=== PATIENT | female | born 1995 | race Caucasian/White ===

== ENCOUNTER 2017-02-12 01:15 | Emergency (ER) | payer BC ==
[~2017-02-12] VITALS: Ht 160 cm; Wt 49.8 kg
[~2017-02-12 01:15] MED LIST: ADDERALL XR 2020 MG PO; GILENYA0.5 MG PO; MODAFINIL200 MG PO; NORTRIPTYLINE H25 MG PO; RIZATRIPTAN10 MG PO; TOPIRAMATE25 MG PO; YASMIN,OCELL1 TABLET PO; ZOLMITRIPTAN5 MG PO; birth control
[2017-02-12 01:36] LABS: HEMATOCRIT 36.5 % (36.0-46.0); MCH 30.5 PG (29.0-34.0); MCHC 34.8 G/DL (30.0-36.0); MCV 87.7 FL (83-99); MEAN PLAT.VOLUME 9.4 uM^3 (9.5-12.4); PLATELET COUNT 343 K/uL (156-360); RBC DIS.WIDTH-CV 12.6 % (11.8-14.6); RBC DIS.WIDTH-SD 39.6 % (39-53); RED BLOOD COUNT 4.16 M/uL (3.80-5.20); WHITE BLOOD COUNT 3.8 K/uL (4.1-10.2)
[2017-02-12 01:47] LABS: CHLORIDE 104 mEq/L (99-109); POTASSIUM 3.8 mEq/L (3.7-5.4); SODIUM 140 mEq/L (136-147)
[2017-02-12 01:49] LABS: GLUCOSE 94 mg/dL (70-99)
[2017-02-12 01:50] LABS: ANION GAP 11 MEQ/L (2-14)
[2017-02-12 01:51] LABS: TOTAL BILIRUBIN 0.6 mg/dL (0.0-1.0)
[2017-02-12 01:52] LABS: ALKALINE PHOSPHATASE 48 IU/L (3-129)
[2017-02-12 01:53] LABS: GFR ESTIMATE (CALCULATED) > 59 mL/min/
[2017-02-12 01:54] LABS: UREA NITROGEN (BUN) 8 mg/dL (9-23)
[2017-02-12 02:05] LABS: QUANTITATIVE HCG < 4.0 MIU/ML
[2017-02-12] MEDS ORDERED: ZOFRAN8 MG PO (04:24)
[2017-02-12] MEDS ORDERED: PEPCID20 MG PO (04:24)
[2017-02-12 05:56] VITALS: BP 112/73
== END 2017-02-12 05:57 | disposition home or self-care (01) ==
LOC: EME 01:15
DX: K20.9 Esophagitis, unspecified (principal); R11.2 Nausea with vomiting, unspecified; G35 Multiple sclerosis; F17.200 Nicotine dependence, unspecified, uncomplicated
CPT/HCPCS: 80053; 84702; 85027; 99281; 99284